=== PATIENT | male | born 1980 | race Caucasian/White ===

== ENCOUNTER 2018-01-21 21:51 | Observation (INO) | payer OTHER ==
[~2018-01-21] VITALS: Ht 182.9 cm; Wt 102.1 kg
[2018-01-21 22:00] VITALS: BP 147/109
[2018-01-21] MEDS ORDERED: SINGULAIR 10 MG10 M1 PO (22:07)
[2018-01-21] MEDS ORDERED: PROAIR RESPICL90 MCG INH (22:07)
[2018-01-21 22:31] LABS: ABSOLUTE BASOPHILS 0.1 thou/uL (0.0-0.2); ABSOLUTE EOSINOPHILS 0.1 thou/uL (0.0-0.7); ABSOLUTE LYMPHOCYTES 1.8 thou/uL (0.8-5.3); ABSOLUTE MONOCYTES 0.6 thou/uL (0.0-1.2); ABSOLUTE NEUTROPHILS 5.1 thou/uL (1.6-8.1); BASOPHILS 0.9 %; EOSINOPHILS 1.6 %; HEMATOCRIT 45.4 % (42.0-52.0); HEMOGLOBIN 15.6 gm/dL (14.0-18.0); LYMPHOCYTES 23.7 %; MCH 32.1 pg (26.0-34.0); MCHC 34.3 g/dL (28.0-37.0); MCV 93.6 fL (80.0-100.0); MONOCYTES 7.4 %; MPV 7.8 fl. (7.2-11.1); NUCLEATED RBCS 0 /100WBC; PLATELET COUNT* 207 thou/uL (150-400); POLYS 66.4 %; RBC 4.85 mil/uL (4.50-6.00); RDW-CV 13.1 % (10.5-14.5); WBC 7.6 thou/uL (4.0-11.0)
[2018-01-21 22:38] LABS: CALCIUM 9.2 mg/dL (8.5-10.1); CREATININE 1.3 mg/dL (0.6-1.3); POTASSIUM 3.8 mmol/L (3.5-5.1)
[2018-01-21 22:43] LABS: ALBUMIN 4.3 g/dL (3.4-5.0); TOTAL BILIRUBIN 0.5 mg/dL (<0.1-1.0)
[2018-01-21 23:33] LABS: URINE BILIRUBIN NEGATIVE (Negative); URINE BLOOD 3+ (Negative); URINE CLARITY CLEAR; URINE COLOR YELLOW; URINE GLUCOSE-RANDOM NEGATIVE (Negative); URINE KETONES NEGATIVE (Negative); URINE LEUKOCYTES-REFLEX NEGATIVE (Negative); URINE NITRITE-REFLEX NEGATIVE (Negative); URINE PROTEIN 1+ (Negative); URINE SPECIFIC GRAVITY >= 1.030 (1.005-1.030); URINE UROBILINOGEN 0.2 E.U./dl (0.2-1.0)
[2018-01-21 23:42] LABS: BACTERIA-REFLEX >30 Many /HPF (None Seen); FINE GRANULAR CASTS 0-3 Few /LPF (None Seen); HYALINE CASTS 0-3 Few /LPF (None Seen); MUCUS 4-6 Moderate strn/LPF (None Seen); SQUAMOUS 0-3 Few /LPF (0-3); URINE RBC >20 Many /HPF (0-2); URINE WBC-REFLEX 6-15 Few /HPF (0-5)
[2018-01-21 23:43] LABS: TRIPLE PHOSPHATE CRYSTALS 0-3 Few /LPF (None Seen)
[2018-01-22 00:12] VITALS: BP 126/68
[2018-01-22 00:43] VITALS: BP 112/79
--- NOTE | 2018-01-22 01:54 | NUR ---
PATIENT ARRIVED ON UNIT AT 0012. TRANSFERRED STANDBY TO THE UNIT BED. ORIENTED TO BED AND CONTROLS. ADMISSION COMPLETE CHARTED. IV PATENT IN THE RIGHT AC INFUSING AT 125 PER ORDERS. DENIES PAIN OR NAUSEA AT THIS TIME. CALL LIGHT WITHIN REACH. NURSING WILL CONTINUE TO MONITOR.
--- NOTE | 2018-01-22 04:48 | NUR ---
PATIENT REMAINS ALERT AND ORIENTED X4 THROUGHOUT SHIFT. VITAL SIGNS STABLE ON ROOM AIR. IV PATENT IN THE LEFT AC INFUSING PER ORDERS. DENIES PAIN OR NAUSEA SINCE ARRIVING ON THE UNIT. PATIENT REQUESTED HOME MEDICATIONS. PHYSICIAN CONTACTED AND ORDERS WERE RECIEVED. TRANSFERS STANDBY TO THE RESTROOM. REPOSITIONING SELF IN BED. HOURLY ROUNDING COMPLETE. CALL LIGHT WITHIN REACH. NURSING WILL CONTINUE TO MONITOR.
[2018-01-22 08:10] VITALS: BP 157/95
[2018-01-22 16:07] VITALS: BP 157/95
[2018-01-22] MEDS ORDERED: NORCO 5-325 TA1 EACH PO (16:13)
[2018-01-22] MEDS ORDERED: FLOMAX0.4 MG PO (16:14)
--- NOTE | 2018-01-22 17:33 | NUR ---
PATIENT IS ALERT AND ORIENTED TODAY VERY PLEASANT. UP AD SHILO IN ROOM. SOME COMPLAINTS OF PAIN THAT IS WELL CONTROLLED WITH ORAL PAIN MEDICATIONS. NO NAUSEA AFTER TAKING ORAL MEDICATIONS. NO STONES FOUND WHILE STRAINING URINE TODAY. PATIENT IS BEING DISCHARGED TO HOME, DISCHARGE INSTRUCTIONS AND PRESCRIPTIONS GIVEN TO PATIENT AND QUESTIONS ANSWERED. PATIENT AMBULATED OUT TO CAR TO GO HOME WITH .
[2018-01-22 17:36] VITALS: BP 157/95
== END 2018-01-22 17:39 | disposition home or self-care (01) ==
LOC: M.ERS 21:51 → M.ORTHSURG 01-22 00:12 → M.TBA-ER 01-22 00:12 → M.ORTHSURG 01-22 00:12
PROVIDERS: Nurse Practitioner; ADMIT Internal Medicine
DX: N13.2 Hydronephrosis with renal and ureteral calculous obstruction (principal); N28.9 Disorder of kidney and ureter, unspecified; J45.909 Unspecified asthma, uncomplicated; R19.7 Diarrhea, unspecified; Z90.49 Acquired absence of other specified parts of digestive tract; Z72.89 Other problems related to lifestyle; Z98.890 Other specified postprocedural states